=== PATIENT | female | born 1975 | race African-American/Black ===

== ENCOUNTER 2016-10-20 05:04 | Emergency (ER) ==
[2016-10-20 05:17] VITALS: BP 111/70
--- NOTE | 2016-10-20 05:34 | PROVIDER DOCUMENTATION ---
HPI-Female /OB/Breast - General Chief Complaint: Female Stated Complaint: UTI SX Time Seen by Provider: 10/20/16 05:28 Allergies/Adverse Reactions: Patient Allergies Allergy/AdvReac Type Severity Reaction Status Date / Time meperidine HCl * Allergy Severe SWELLING Verified 08/04/16 01:20 [From Demerol] Home Medications: Home Medication List Medication Instructions Recorded Confirmed Last Taken Type LISINOpril/HCTZ [Prinzide 1 each PO DAILY 05/22/13 10/20/16 04/08/15 History 20/12.5MG] Metformin [Glucophage] 1,000 mg PO BID 05/22/13 10/20/16 04/08/15 History Hydrocodone/APAP 5 mg/325 mg 1 tab PO Q6H PRN PRN #12 tablet 10/05/14 10/20/16 Unknown Rx [[place]-5] Omeprazole [Prilosec] 40 mg PO DAILY #90 capsule. 06/02/16 10/20/16 Unknown Rx Sitagliptin Phos/Metformin HCl 1 each PO QAM #30 tab 08/04/16 10/20/16 Unknown Rx [Janumet Xr 100-1,000 mg Tablet] Ciprofloxacin HCl [Cipro] 500 mg PO BID #14 tablet 10/20/16 Unknown Rx Insulin Glargine,Hum.rec.anlog 40 unit SQ PRN PRN 10/20/16 10/20/16 Unknown History [Lantus Solostar] Phenazopyridine HCl [Pyridium] 200 mg PO Q6-8H PRN PRN #12 tablet 10/20/16 Unknown Rx Review of Systems - Adult - REVIEW OF SYSTEMS - ADULT Constitutional: reports: no symptoms reported Eyes: reports: no symptoms reported Ears, Nose, Mouth & Throat: reports: no symptoms reported Cardiovascular: reports: no symptoms reported Respiratory: reports: no symptoms reported Gastrointestinal: reports: no symptoms reported Genitourinary: reports: dysuria Musculoskeletal: reports: no symptoms reported Integumentary: reports: no symptoms reported Neurological: reports: no symptoms reported Psychiatric: reports: no symptoms reported Endocrine: reports: no symptoms reported Hematologic/Lymphatic: reports: no symptoms reported Allergic/Immunologic: reports: no symptoms reported All Other Systems: Reviewed and Negative Past History - Adult - PAST MEDICAL HISTORY-ADULT Review of Records: reports: Old Records Reviewed, Nursing Assessment Review, Medications Reviewed, Social history reviewed & non-contributory. Major Childhood Illnesses: reports: denies history Cardiovascular: reports: HTN Respiratory: reports: denies history Gastrointestinal: reports: denies history Obstetrical/Gynecological: reports: denies history Genitourinary: reports: denies history Musculoskeletal: reports: chronic pain (back) Neurological: reports: denies history Endocrine/Immune: reports: Diabetes Other Conditions: reports: denies history - PRIOR SURGERIES/PROCEDURES Surgical/Procedure History: reports: cholecystectomy, hysterectomy, breast - IMMUNIZATION STATUS Childhood Immunizations: See Nurse Assessment Flu Vaccine: See Nurse Assessment - FAMILY HISTORY Family History: reviewed, not pertinent Physical Exam-General - PHYSICAL EXAM-ADULT Initial Vital Signs Reviewed: Yes - CONSTITUTIONAL General Appearance: no apparent distress - EYES Eyes: PERRL/EOMI - HEAD, EARS, NOSE, MOUTH & THROAT HENMT: normocephalic/atraumatic, moist mucous membranes, normal ENT inspection - NECK Neck: non-tender, full range of motion, supple - RESPIRATORY Respiratory: lungs clear, normal breath sounds - CARDIOVASCULAR Cardiovascular: normal peripheral pulses, regular rate, rhythm, no edema, no gallop, no JVD, no murmur - CHEST (BREASTS) Chest/Breast: deferred - GASTROINTESTINAL (ABDOMEN) Abdominal Exam: normal bowel sounds, non tender, soft - GENITOURINARY Female Genitalia/Pelvic Exam: deferred Rectal Exam: deferred - LYMPHATIC Lymphatic: no adenopathy - MUSCULOSKELETAL Back Exam: normal inspection, no CVA tenderness, no vertebral tenderness Extremity: normal range of motion, non-tender, normal gait, normal inspection, no pedal edema - SKIN Integumentary: normal color, normal turgor, warm/dry - NEUROLOGIC Neurologic: grossly normal, no motor/sensory deficits - PSYCHIATRIC Psych/Mental Status: normal mood/affect, normal thought content, normal thought process, oriented x 3 Departure - Departure Time of Disposition Order: 06:00 DIAGNOSIS: Cystitis Diabetes Qualifiers: Diabetes mellitus type: type 2 Diabetes mellitus complication status: without complication Diabetes mellitus halfway insulin use: without halfway use Qualified Code(s): E11.9 - Type 2 diabetes mellitus without complications Disposition: HOME 01 Certified Medical Emergency: Emergent Condition: Fair Prescriptions: Ciprofloxacin HCl [Cipro] 500 mg PO BID #14 tablet Phenazopyridine HCl [Pyridium] 200 mg PO Q6-8H PRN PRN #12 tablet PRN Reason: Pain Referrals: Darwin Charles MD [Primary Care Provider] -
[2016-10-20 05:37] LABS: URINE SOURCE CLEAN CATCH
[2016-10-20] MEDS ORDERED: LEVAQUIN PO ONE (05:38)
[2016-10-20] MEDS ORDERED: PYRIDIUM PO ONE (05:38)
[2016-10-20 05:56] LABS: BILIRUBIN URINE NEGATIVE (NEGATIVE); BLOOD URINE 4+ (NEGATIVE); CLARITY VERY CLOUDY (CLEAR); COLOR YELLOW; GLUCOSE URINE NEGATIVE (NEGATIVE); LEUKOCYTES URINE 2+ (NEGATIVE); NITRITE URINE NEGATIVE (NEGATIVE); PROTEIN URINE 1+(30 mg/dL) mg/dL (NEGATIVE); SP GRAVITY URINE 1.015; UROBILINOGEN URINE NORMAL
[2016-10-20 05:57] LABS: URINE CULTURE PL NEEDED? YES; URINE WBC TNTC /HPF (<10)
== END 2016-10-20 05:48 | disposition home or self-care (01) ==
LOC: P.ED 05:04
DX: N30.90 Cystitis, unspecified without hematuria (principal); E11.9 Type 2 diabetes mellitus without complications; R30.0 Dysuria; I10 Essential (primary) hypertension; G89.29 Other chronic pain; M54.9 Dorsalgia, unspecified; Z79.4 Long term (current) use of insulin; Z79.899 Other long term (current) drug therapy
CPT/HCPCS: 81001; 87088